=== PATIENT | male | born 1965 | race Asian ===

== ENCOUNTER 2017-02-13 08:42 | Emergency (ER) | payer OTHER ==
[~2017-02-13] VITALS: Ht 185.4 cm; Wt 99.8 kg
[2017-02-13 08:58] VITALS: TEMP 97.5
[2017-02-13 09:31] LABS: PLATELET COUNT 255 K/uL (142-355)
[2017-02-13 09:39] LABS: POTASSIUM 4.1 mmol/L (3.6-5.2)
[2017-02-13 12:30] VITALS: BP 147/80
== END 2017-02-13 12:40 | disposition home or self-care (01) ==
LOC: ED 08:42
DX: N23 Unspecified renal colic (principal); N20.0 Calculus of kidney
CPT/HCPCS: 80053; 80307; 81000; 82150; 83690; 85027; 96360; 96361; 96374; 96375; 96376; 99284; G0479; J1885; J2175; J2405; Q9963